=== PATIENT | female | born 1975 | race Hispanic/Latino ===

== ENCOUNTER → 2018-07-23 | Outpatient (REF) | payer BC ==
[~2018-07-23] MED LIST: GLYBURIDE2.5 MG PO; LORTAB 7.57.5 MG; NAPROSYN500 MG PO; PRENATAL1 TA1 PO; ULTRAM50 M1 PO
== END | disposition home or self-care (01) | DRG 601 ==
LOC: MAMMO 07-16 08:00
PROVIDERS: ATTEND Family Medicine
DX: N64.89 Other specified disorders of breast (principal)

== ENCOUNTER 2018-08-30 07:02 | Emergency (ER) | payer BC ==
[~2018-08-30] VITALS: Ht 152.4 cm; Wt 51.3 kg
[2018-08-30] MEDS ORDERED: NOVOLOG MIX SC (07:41)
[2018-08-30 07:55] LABS: URINE BILIRUBIN - DIPSTICK NEGATIVE (NEGATIVE); URINE BLOOD DIPSTICK NEGATIVE (NEGATIVE); URINE COLOR YELLOW; URINE GLUCOSE - DIPSTICK NEGATIVE (NEGATIVE); URINE KETONE NEGATIVE (NEGATIVE); URINE LEUK ESTERASE NEGATIVE (NEGATIVE); URINE NITRITE - DIPSTICK NEGATIVE (Negative); URINE PROTEIN - DIPSTICK NEGATIVE (NEG-TRACE); URINE UROBILINOGEN - DIPSTICK 0.2 E.U./dL (0.2)
[2018-08-30 07:59] LABS: URINE CLARITY CLEAR
[2018-08-30 08:02] LABS: IMMATURE GRANULOCYTES 0.3 % (0.0-5.0); MEAN CELL VOLUME 92.5 fL CALC (80.0-100.0); MEAN CORPUSCULAR HGB 32.1 pG CALC (26.0-32.0); MEAN CORPUSCULAR HGB CONC 34.7 g/L CALC (32.0-36.0); NEUT# 4.15 thou/uL (2.00-7.15); RED BLOOD COUNT 4.42 mill/uL (4.20-5.60); RED CELL DISTRI WIDTH 11.8 % (11.5-15.5)
[2018-08-30 08:08] LABS: HEMATOCRIT 40.9 % (37.0-47.0); HEMOGLOBIN 14.2 g/dl (12.0-16.0)
[2018-08-30 08:14] LABS: ALBUMIN 3.9 g/dL (3.2-5.0); AMYLASE 56 u/l (30-110); BILIRUBIN, TOTAL 1.2 mg/dL (0.0-1.4); BUN 17 mg/dL (7-17); BUN/CREATININE RATIO 36 (12-20 (CALC)); CHLORIDE 104 mmol/l (95-108); CREATININE 0.5 mg/dL (0.5-1.0); GFR > 60 ML/MIN (>=60 (CALC)); GFR FOR AFR.AMER. > 60 ML/MIN (>=60 (CALC)); LIPASE 68 u/l (23-300); POTASSIUM 4.5 mmol/l (3.5-5.1); SGOT/AST 18 u/l (14-36); SODIUM 137 mmol/l (137-146); TOTAL PROTEIN 6.9 g/dL (6.3-8.2)
[2018-08-30 08:15] LABS: ALKALINE PHOSPHATASE 49 u/l (38-126); ANION GAP 11 (6-22 (CALC)); CARBON DIOXIDE 27 mmol/l (22-30)
[2018-08-30 09:30] VITALS: BP 136/86
== END 2018-08-30 09:30 | disposition home or self-care (01) | DRG 392 ==
LOC: ED 07:02
PROVIDERS: Emergency Medicine
DX: K59.00 Constipation, unspecified (principal); E11.9 Type 2 diabetes mellitus without complications

== ENCOUNTER 2018-10-22 23:39 | Emergency (ER) | payer BC ==
[~2018-10-22] VITALS: Ht 160 cm; Wt 49.5 kg
[~2018-10-22 23:39] MED LIST changes: +NOVOLOG MIX SC
[2018-10-23 00:09] LABS: HEMATOCRIT 36.8 % (37.0-47.0); IMMATURE GRANULOCYTES 0.2 % (0.0-5.0); MEAN CELL VOLUME 91.3 fL CALC (80.0-100.0); MEAN CORPUSCULAR HGB 32.3 pG CALC (26.0-32.0); MEAN CORPUSCULAR HGB CONC 35.3 g/L CALC (32.0-36.0); NEUT# 7.18 thou/uL (2.00-7.15); RED BLOOD COUNT 4.03 mill/uL (4.20-5.60); RED CELL DISTRI WIDTH 11.5 % (11.5-15.5)
[2018-10-23 00:11] LABS: URINE BILIRUBIN - DIPSTICK NEGATIVE (NEGATIVE); URINE BLOOD DIPSTICK LARGE (NEGATIVE); URINE COLOR YELLOW; URINE GLUCOSE - DIPSTICK 500 mg/dL (NEGATIVE); URINE KETONE NEGATIVE (NEGATIVE); URINE NITRITE - DIPSTICK NEGATIVE (Negative); URINE PROTEIN - DIPSTICK 30 mg/dL (NEG-TRACE); URINE UROBILINOGEN - DIPSTICK 0.2 E.U./dL (0.2)
[2018-10-23 00:18] LABS: URINE LEUK ESTERASE MODERATE (NEGATIVE)
[2018-10-23 00:31] LABS: URINE WBC TNTC WBC/hpf (0-5)
[2018-10-23 00:32] LABS: URINE BACTERIA FEW hpf
[2018-10-23 00:40] LABS: ALBUMIN 3.9 g/dL (3.2-5.0); ALKALINE PHOSPHATASE 68 u/l (38-126); AMYLASE 64 u/l (30-110); ANION GAP 15 (6-22 (CALC)); BILIRUBIN, TOTAL 0.3 mg/dL (0.0-1.4); BUN 16 mg/dL (7-17); BUN/CREATININE RATIO 27 (12-20 (CALC)); CARBON DIOXIDE 27 mmol/l (22-30); CHLORIDE 100 mmol/l (95-108); CREATININE 0.6 mg/dL (0.5-1.0); GFR > 60 ML/MIN (>=60 (CALC)); GFR FOR AFR.AMER. > 60 ML/MIN (>=60 (CALC)); LIPASE 122 u/l (23-300); POTASSIUM 4.2 mmol/l (3.5-5.1); SGOT/AST 15 u/l (14-36); SODIUM 138 mmol/l (137-146)
[2018-10-23] MEDS ORDERED: CIPROFLOXACN500 MG PO (02:52)
[2018-10-23 02:58] VITALS: BP 140/79
--- NOTE | 2018-10-25 14:15 | NUR ---
URINE CULTURE IS (+) FOR ESBL ECOLI, PATIENT WAS SEEN ON 10/23/18 AND COMPLAINED OF UTI AND LOWER BACK PAIN. THE PATIENT WAS SENT HOME ON CIPRO AND THE ESBL SHOWS RESISTANCE. CALLED THE PATIENT AT 1300 AND SHE REPORTS HER SYMTOMS ARE NOT GETTING BETTER AND HER PCP ([facility]) DOES NOT OFFER WEEKEND HOURS. TOLD THE PATIENT IF HER SYMTOMS WORSEN OR SHE HAS FEVER OR CHILLS TO RETURN TO THE ER. SHE SAYS SHE PLANS ON RETURNING TONIGHT. WHEN HEALTH DEPT RE OPENS WE WILL RECOMMEND INVANZ 1 GRAM Q24H FOR 7-10 DAYS.
== END 2018-10-23 02:58 | disposition home or self-care (01) | DRG 690 ==
LOC: ED 23:39
PROVIDERS: Emergency Medicine
DX: N39.0 Urinary tract infection, site not specified (principal); B96.20 Unspecified Escherichia coli [E. coli] as the cause of diseases classified elsewhere; R10.31 Right lower quadrant pain; R11.2 Nausea with vomiting, unspecified; R30.0 Dysuria; R35.0 Frequency of micturition

== ENCOUNTER 2018-10-25 16:13 | Emergency (ER) | payer BC ==
[~2018-10-25] VITALS: Ht 160 cm; Wt 48.6 kg
[~2018-10-25 16:13] MED LIST changes: +CIPROFLOXACN500 MG PO
[2018-10-25 17:03] LABS: URINE BILIRUBIN - DIPSTICK NEGATIVE (NEGATIVE); URINE BLOOD DIPSTICK NEGATIVE (NEGATIVE); URINE COLOR YELLOW; URINE GLUCOSE - DIPSTICK NEGATIVE (NEGATIVE); URINE KETONE NEGATIVE (NEGATIVE); URINE LEUK ESTERASE NEGATIVE (NEGATIVE); URINE NITRITE - DIPSTICK NEGATIVE (Negative); URINE PH 5.5 (4.5-8.0); URINE PROTEIN - DIPSTICK NEGATIVE (NEG-TRACE); URINE SPECIFIC GRAVITY <=1.005; URINE UROBILINOGEN - DIPSTICK 0.2 E.U./dL (0.2)
[2018-10-25 17:08] LABS: HEMATOCRIT 37.1 % (37.0-47.0); HEMOGLOBIN 13.1 g/dl (12.0-16.0); IMMATURE GRANULOCYTES 0.3 % (0.0-5.0); MEAN CELL VOLUME 90.3 fL CALC (80.0-100.0); MEAN CORPUSCULAR HGB 31.9 pG CALC (26.0-32.0); MEAN CORPUSCULAR HGB CONC 35.3 g/L CALC (32.0-36.0); NEUT# 3.62 thou/uL (2.00-7.15); RED BLOOD COUNT 4.11 mill/uL (4.20-5.60); RED CELL DISTRI WIDTH 11.5 % (11.5-15.5)
[2018-10-25 17:28] LABS: ANION GAP 15 (6-22 (CALC)); BUN 13 mg/dL (7-17); BUN/CREATININE RATIO 30 (12-20 (CALC)); CARBON DIOXIDE 28 mmol/l (22-30); CHLORIDE 98 mmol/l (95-108); CREATININE 0.4 mg/dL (0.5-1.0); GFR > 60 ML/MIN (>=60 (CALC)); GFR FOR AFR.AMER. > 60 ML/MIN (>=60 (CALC)); POTASSIUM 4.4 mmol/l (3.5-5.1); SODIUM 136 mmol/l (137-146)
[2018-10-25 18:30] VITALS: BP 126/85
== END 2018-10-25 18:30 | disposition home or self-care (01) | DRG 690 ==
LOC: ED 16:13
PROVIDERS: Family Medicine
DX: N12 Tubulo-interstitial nephritis, not specified as acute or chronic (principal); B96.20 Unspecified Escherichia coli [E. coli] as the cause of diseases classified elsewhere; Z16.12 Extended spectrum beta lactamase (ESBL) resistance; R30.0 Dysuria; R35.0 Frequency of micturition; R39.15 Urgency of urination; R10.31 Right lower quadrant pain
CPT/HCPCS: J1335

== ENCOUNTER 2018-10-26 16:09 | Emergency (ER) | payer BC ==
[~2018-10-26] VITALS: Ht 160 cm; Wt 63.6 kg
[2018-10-26 16:58] VITALS: BP 109/74
--- NOTE | 2018-10-27 10:21 | NUR ---
An order for Invanz via IV outpatient therapy from Dr. Calderon was sent over in response to our request and recommendation for a change in antibiotic therapy therapy.
== END 2018-10-26 17:01 | disposition home or self-care (01) | DRG 690 ==
LOC: ED 16:09
DX: N39.0 Urinary tract infection, site not specified (principal); E11.9 Type 2 diabetes mellitus without complications; B96.89 Other specified bacterial agents as the cause of diseases classified elsewhere; Z16.12 Extended spectrum beta lactamase (ESBL) resistance
CPT/HCPCS: J1335

== ENCOUNTER 2018-12-01 07:22 | Day surgery (SDC) | payer BC ==
[~2018-12-01] VITALS: Ht 160 cm; Wt 50.8 kg
[~2018-12-01 07:22] MED LIST changes: +GABAPENTIN100 MG PO; +NAPROXEN250 MG PO
[2018-12-01 09:51] VITALS: BP 122/71
== END 2018-12-01 09:50 | disposition home or self-care (01) | DRG 392 ==
LOC: ENDO 07:22 → ORM 10:15 → ENDO 10:15
PROVIDERS: ATTEND Surgery
PROC: 0DJD8ZZ Inspection of Lower Intestinal Tract, Via Natural or Artificial Opening Endoscopic (ICD-10-PCS; principal; 2018-12-01)
DX: R19.4 Change in bowel habit (principal)

== ENCOUNTER → 2018-12-15 | Outpatient (REF) | payer BC ==
[2018-12-15 12:09] VITALS: BP 123/72
== END | disposition home or self-care (01) | DRG 951 ==
LOC: BADA 10:15
PROVIDERS: ATTEND Surgery
DX: Z09 Encounter for follow-up examination after completed treatment for conditions other than malignant neoplasm (principal)

== ENCOUNTER 2022-02-16 22:45 | Emergency (ER) | payer SELFPAY ==
[~2022-02-16] VITALS: Ht 160 cm; Wt 58.0 kg
[2022-02-16 23:29] LABS: HEMATOCRIT 36.1 % (37.0-47.0); HEMOGLOBIN 11.9 g/dl (12.0-16.0); IMMATURE GRANULOCYTES 0.2 % (0.0-5.0); MEAN CORPUSCULAR HGB 32.2 pG CALC (26.0-32.0); NEUT# 3.24 thou/uL (2.00-7.15); RED BLOOD COUNT 3.7 mill/uL (4.20-5.60)
[2022-02-16 23:30] VITALS: BP 112/68
[2022-02-16 23:31] LABS: MEAN CELL VOLUME 97.6 fL CALC (80.0-100.0)
[2022-02-16 23:38] LABS: HCG SERUM/URINE (NEG/POS) NEGATIVE (NEGATIVE)
[2022-02-16 23:44] LABS: ALKALINE PHOSPHATASE 59 u/l (38-126); ANION GAP 7 (6-22 (CALC)); BUN 21 mg/dL (7-17); BUN/CREATININE RATIO 39 (12-20 (CALC)); CARBON DIOXIDE 30 mmol/l (22-30); CHLORIDE 102 mmol/l (95-108); CREATININE 0.5 mg/dL (0.5-1.0); GFR > 60 ML/MIN (>=60 (CALC)); GFR FOR AFR.AMER. > 60 ML/MIN (>=60 (CALC)); POTASSIUM 3.8 mmol/l (3.5-5.1); SODIUM 136 mmol/l (137-146); TOTAL PROTEIN 6.9 g/dL (6.3-8.2)
[2022-02-16 23:45] VITALS: BP 135/75
[2022-02-16 23:54] LABS: BILIRUBIN, TOTAL 0.9 mg/dL (0.0-1.4); SGOT/AST 27 u/l (14-36)
[2022-02-17] VITALS: BP 118/66
[2022-02-17 00:28] LABS: URINE BILIRUBIN - DIPSTICK NEGATIVE (NEGATIVE); URINE BLOOD DIPSTICK NEGATIVE (NEGATIVE); URINE COLOR YELLOW; URINE GLUCOSE - DIPSTICK >=1000 mg/dL (NEGATIVE); URINE KETONE NEGATIVE (NEGATIVE); URINE LEUK ESTERASE NEGATIVE (NEGATIVE); URINE NITRITE - DIPSTICK NEGATIVE (Negative); URINE PH 6.5 (4.5-8.0); URINE PROTEIN - DIPSTICK NEGATIVE (NEG-TRACE); URINE SPECIFIC GRAVITY <=1.005; URINE UROBILINOGEN - DIPSTICK 0.2 E.U./dL (0.2)
[2022-02-17] MEDS ORDERED: MECLIZINE25 MG PO (00:55)
[2022-02-17] MEDS ORDERED: TORADOL PO (00:55)
[2022-02-17 01:01] VITALS: BP 118/66
== END 2022-02-17 01:15 | disposition home or self-care (01) | DRG 866 ==
LOC: ED 22:45
PROVIDERS: Family Medicine
DX: B34.9 Viral infection, unspecified (principal); E11.9 Type 2 diabetes mellitus without complications; Z79.4 Long term (current) use of insulin; Z20.822 Contact with and (suspected) exposure to COVID-19

== ENCOUNTER 2023-02-05 21:53 | Observation (INO) | payer OTHER ==
[~2023-02-05] VITALS: Ht 160 cm; Wt 55.0 kg
[~2023-02-05 21:53] MED LIST changes: +MECLIZINE25 MG PO; +TORADOL PO
[2023-02-05 23:54] LABS: BASO% 0.4 % (0-3); EOS% 1.3 % (0-8); HEMATOCRIT 37.5 % (37.0-47.0); HEMOGLOBIN 12.6 g/dl (12.0-16.0); LYMPH% 27.4 % (15-41); MEAN CELL VOLUME 93.1 fL CALC (80.0-100.0); MEAN CORPUSCULAR HGB 31.3 pG CALC (26.0-32.0); MEAN CORPUSCULAR HGB CONC 33.6 g/dL CAL (32.0-36.0); MONO% 6.1 % (2-13); NEUT# 5.19 thou/uL (2.00-7.15); NEUT% 64.8 % (42-76); RED BLOOD COUNT 4.03 mill/uL (4.20-5.60); RED CELL DISTRI WIDTH 11.6 % (11.5-15.5)
[2023-02-05 23:59] LABS: ALKALINE PHOSPHATASE 53 u/l (38-126); ANION GAP 12 (6-22 (CALC)); BUN 25 mg/dL (7-17); BUN/CREATININE RATIO 40 (12-20 (CALC)); CARBON DIOXIDE 26 mmol/l (22-30); CHLORIDE 101 mmol/l (95-108); CREATININE 0.6 mg/dL (0.5-1.0); GFR FOR AFR.AMER. > 60 ML/MIN (>=60 (CALC)); GFR OTHER RACES > 60 ML/MIN (>=60 (CALC)); LIPASE 115 u/l (23-300); POTASSIUM 4.3 mmol/l (3.5-5.1); SGOT/AST 41 u/l (14-36); SODIUM 135 mmol/l (137-146); TOTAL PROTEIN 6.9 g/dL (6.3-8.2)
[2023-02-06 00:02] LABS: BILIRUBIN, TOTAL 0.4 mg/dL (0.02-1.3)
[2023-02-06 00:05] LABS: ACT PARTIAL THROMBO TIME 21.9 SECONDS (20.0-32.5); PROTHROMBIN TIME 9.6 SECONDS (9.0-12.5)
[2023-02-06 00:18] LABS: D-DIMER 0.23 mg/L (0.19-0.60)
[2023-02-06 03:56] VITALS: BP 140/78
[2023-02-06 06:53] VITALS: BP 125/69
[2023-02-06] MEDS ORDERED: LEVEMIR100 UNIT SC (08:51)
[2023-02-06 09:15] LABS: BASO% 0.5 % (0-3); HEMATOCRIT 38.4 % (37.0-47.0); HEMOGLOBIN 12.8 g/dl (12.0-16.0); IMMATURE GRANULOCYTES 0.2 % (0.0-5.0); LYMPH% 31.4 % (15-41); MEAN CELL VOLUME 94.6 fL CALC (80.0-100.0); MEAN CORPUSCULAR HGB 31.5 pG CALC (26.0-32.0); MEAN CORPUSCULAR HGB CONC 33.3 g/dL CAL (32.0-36.0); MONO% 6.8 % (2-13); NEUT# 3.84 thou/uL (2.00-7.15); NEUT% 59.1 % (42-76); RED BLOOD COUNT 4.06 mill/uL (4.20-5.60); RED CELL DISTRI WIDTH 11.7 % (11.5-15.5)
[2023-02-06 10:44] VITALS: BP 137/75
== END 2023-02-06 15:52 | disposition home or self-care (01) | DRG 313 ==
LOC: ED 21:53 → MS2 02-06 02:30
PROVIDERS: Emergency Medicine; Internal Medicine; ADMIT Internal Medicine; ATTEND Internal Medicine
DX: R07.9 Chest pain, unspecified (principal); E11.65 Type 2 diabetes mellitus with hyperglycemia; E11.40 Type 2 diabetes mellitus with diabetic neuropathy, unspecified; Z79.4 Long term (current) use of insulin